=== PATIENT | male | born 1950 | race Caucasian/White ===

== ENCOUNTER 2021-02-09 01:16 | Emergency (ER) | payer OTHER ==
[~2021-02-09] VITALS: Ht 182.9 cm; Wt 81.8 kg
[2021-02-09 01:36] VITALS: BP 132/83
[2021-02-09] MEDS ORDERED: DEXA6TAB6 PO (03:52)
[2021-02-09] MEDS ORDERED: dexamethasone 4mg tablet PO ONE (03:55)
[2021-02-09] MEDS ORDERED: DEXAMETHASONE 6 MG TABLET PO ONE (04:20)
== END 2021-02-09 04:24 | disposition home or self-care (01) ==
LOC: ER 01:22
DX: U07.1 COVID-19 (principal); R09.81 Nasal congestion; R09.89 Other specified symptoms and signs involving the circulatory and respiratory systems; Z79.899 Other long term (current) drug therapy
CPT/HCPCS: 87635; 99283; C9803; J8540

== ENCOUNTER 2021-04-17 11:57 | Outpatient (CLI) | payer OTHER ==
[~2021-04-17] VITALS: Ht 182.9 cm; Wt 81.6 kg
[~2021-04-17 11:57] MED LIST: NO HOME MEDS; cefazolin/dext.iso 2gm/50ml IV ONE; famotidine 20mg tablet PO ONE; ringers solution, lacted 1,000 ML IV SCH
--- NOTE | 2021-04-17 13:17 | NUR ---
SURGERY CANCELED BY DR VEGA AND REQUESTS CARDIAC CLEARANCE D/T NEW ONSET A FIB ON EKG. DR GRAVES OFFICE NOTIFIED AND PT WILL NOTIFY HIS PMD Addendum: 04/17/21 at 1326 by Ilana Rios RN Amended: Links added.
== END 2021-04-17 13:15 | disposition home or self-care (01) ==
LOC: PRE-OP 11:57 → EDSTATUS 12:15 → PRE-OP 13:15
PROVIDERS: ATTEND Surgery
DX: K40.20 Bilateral inguinal hernia, without obstruction or gangrene, not specified as recurrent (principal); Z53.8 Procedure and treatment not carried out for other reasons; I48.91 Unspecified atrial fibrillation; F32.A Depression, unspecified; Z86.16 Personal history of COVID-19; Z79.899 Other long term (current) drug therapy
CPT/HCPCS: 93005; J0690; J7120

== ENCOUNTER 2021-09-18 08:04 | Day surgery (SDC) | payer OTHER ==
[2021-09-18] VITALS (13 sets, daily range): BP systolic 91–128; BP diastolic 57–93
[~2021-09-18] VITALS: Ht 182.9 cm; Wt 85.9 kg
[~2021-09-18 08:04] MED LIST changes: -cefazolin/dext.iso 2gm/50ml IV ONE; -famotidine 20mg tablet PO ONE; -ringers solution, lacted 1,000 ML IV SCH
[2021-09-18] MEDS ORDERED: diphenhydrAMINE 25mg capsule PO PRN (08:20)
[2021-09-18] MEDS ORDERED: nitroGLYCERIN 0.4mg SUBLingual tab SL PRN (08:20)
[2021-09-18] MEDS ORDERED: LORazepam 0.5 MG tablet PO PRN (08:20)
[2021-09-18] MEDS ORDERED: normal saline 1,000 ML IV SCH (08:20)
[2021-09-18] MEDS ORDERED: iohexol 350MG/ML 100ml bottle IV ONE ×2 (09:00→10:56)
[2021-09-18] MEDS ORDERED: CYAN50009 PO (09:48)
[2021-09-18] MEDS ORDERED: pneumococcal 23-VAL P-sac vacc 25 mcg/0.5ml vial IMVAC ONE (10:00)
[2021-09-18] MEDS ORDERED: fentaNYL/PF 50MCG/1 ML 2ML syringe ONE (10:56)
[2021-09-18] MEDS ORDERED: midazolam 1 mg/ML 2ml injection ONE (10:56)
[2021-09-18] MEDS ORDERED: LIDOcaine 1%/PF 5ML 10 MG/ML VIAL ONE (10:56)
--- NOTE | 2021-09-18 12:56 | NUR ---
Pt laying supine in bed, watching TV and eating crackers. Denies pain. States he is "doing good". Call light with in reach.
== END 2021-09-18 16:50 | disposition home or self-care (01) ==
LOC: SSTAY O 08:04
PROVIDERS: ATTEND Internal Medicine Cardiovascular Disease
DX: R94.39 Abnormal result of other cardiovascular function study (principal); I25.10 Atherosclerotic heart disease of native coronary artery without angina pectoris; I48.20 Chronic atrial fibrillation, unspecified; Z79.899 Other long term (current) drug therapy; Z98.890 Other specified postprocedural states; Z23 Encounter for immunization
CPT/HCPCS: 90732; 93005; 93458; C1760; C1769; J2250; J3010; J3490; J7030; Q0163; Q9967; 90471; 99152; A4620; A6258

== ENCOUNTER 2021-10-09 05:43 | Day surgery (SDC) | payer OTHER ==
[2021-10-04 14:59] LABS: BASOPHILS # (AUTO) 0.1 X10'3 (0-0.2); BASOPHILS % (AUTO) 1.1 % (0-1); EOSINOPHILS # (AUTO) 0.2 X10'3 (0-0.9); EOSINOPHILS % (AUTO) 3.4 % (0-6); LYMPHOCYTES # (AUTO) 1.9 X10'3 (1.1-4.8); LYMPHOCYTES % (AUTO) 27.3 % (21-51); MEAN CORPUSCULAR HEMOGLOBIN 31.1 PG (27.0-31.0); MEAN CORPUSCULAR HGB CONC 34.7 g/dL (33.0-36.5); MEAN CORPUSCULAR VOLUME 89.7 FL (78-98); MONOCYTES # (AUTO) 0.7 X10'3 (0-0.9); MONOCYTES % (AUTO) 9.9 % (2-12); NEUTROPHILS % (AUTO) 58.3 % (42-75); PRE OP HEMATOCRIT 43.9 % (42.0-52.0); PRE OP HEMOGLOBIN 15.2 g/dL (14.0-17.9); PRE OP PLATELET COUNT 267 X10'3 (140-440); RED BLOOD COUNT 4.89 X10'6 (4.70-6.10); RED CELL DISTRIBUTION WIDTH 13.3 % (11.5-14.5)
[2021-10-04 15:17] LABS: CLARITY,URINE CLEAR (Clear); COLOR,URINE YELLOW (Yellow); GLUCOSE, URINE NEGATIVE (Neg); KETONES,URINE TRACE mg/dl (Neg); LEUKOCYTE ESTERASE ,URINE NEGATIVE (Neg); NITRITES, URINE NEGATIVE (Neg); OCCULT BLOOD,URINE NEGATIVE (Neg); PH,URINE 5.5 (4.8-8.0); PROTEIN,URINE NEGATIVE (Neg); UROBILINOGEN,URINE 0.2 E.U/dL (0.2-1.0)
[2021-10-04 15:19] LABS: ALBUMIN 3.5 G/DL (3.4-5.0); ALKALINE PHOSPHATASE 130 IU/L (46-116); BLOOD UREA NITROGEN 15 MG/DL (7-18); BUN/CREATININE RATIO 16.5 (5.4-32.0); CALCIUM 8.7 MG/DL (8.5-10.1); CHLORIDE 107 MMOL/L (99-107); CREATININE 0.91 MG/DL (0.60-1.10); PRE OP ALT 34 U/L (30-65); PRE OP ANION GAP 6 (8-16); PRE OP AST 15 U/L (10-37); PRE OP GLUCOSE 114 MG/DL (70-104); PRE OP SODIUM 142 MMOL/L (135-145); TOTAL CARBON DIOXIDE 28.8 MMOL/L (24-32); TOTAL PROTEIN 7.1 G/DL (6.4-8.2); eGFR 82 ML/MIN
[2021-10-04 15:24] LABS: UA COLLECTION TYPE CLN CATCH MIDSTREAM
[~2021-10-09] VITALS: Ht 182.9 cm; Wt 85.0 kg
[2021-10-09] VITALS (25 sets, daily range): BP systolic 109–148; BP diastolic 62–92
[~2021-10-09 05:43] MED LIST changes: +ceFAZolin inj. 2,000 MG in dextrose 5%-water 100 ML IV ONE; +famotidine 20mg tablet PO ONE; +ringers solution, lacted 1,000 ML IV SCH
[2021-10-09] MEDS ORDERED: BUPIVAcaine/PF 2.5 mg/ml (0.25%) 30ml vial ONE (07:01)
[2021-10-09] MEDS ORDERED: fentaNYL/PF 50MCG/1 ML 2ML syringe ONE (07:05)
[2021-10-09] MEDS ORDERED: midazolam 1 mg/ML 2ml injection ONE (07:06)
[2021-10-09] MEDS ORDERED: morphine 2 MG/ML inj. syringe IV PRN (07:15)
[2021-10-09] MEDS ORDERED: hydrALAZINE 20mg/ml inj. IV PRN (07:15)
[2021-10-09] MEDS ORDERED: fentaNYL/PF 50MCG/1 ML 2ML syringe IV PRN ×2 (07:15)
[2021-10-09] MEDS ORDERED: ringers solution, lacted 1,000 ML IV SCH (07:15)
[2021-10-09] MEDS ORDERED: morphine 4 MG/ML inj SYRINge IV PRN (07:15)
[2021-10-09] MEDS ORDERED: ondansetron/PF 4mg/2ml inj IV PRN (07:15)
[2021-10-09] MEDS ORDERED: labetalol 20mg/4ml (5mg/ml) syringe IV PRN (07:15)
[2021-10-09] MEDS ORDERED: propofol 10mg/ml 20ml vial IV ONE (08:10)
[2021-10-09] MEDS ORDERED: sevoflurane 250ml liquid IH ONE (08:10)
[2021-10-09] MEDS ORDERED: rocuronium 10mg/ml inj IV ONE (08:11)
[2021-10-09] MEDS ORDERED: LIDOcaine 1%/PF 5ML 10 MG/ML VIAL ONE (08:11)
[2021-10-09] MEDS ORDERED: dexamethasone sod phosphate 4mg/ml inj. ONE (08:11)
[2021-10-09] MEDS ORDERED: ondansetron/PF 4mg/2ml inj ONE (08:11)
[2021-10-09] MEDS ORDERED: neostigmine methylsulfate 1 MG/ML 10ml vial ONE (08:44)
[2021-10-09] MEDS ORDERED: glycopyrrolate 0.2mg/ml inj ONE (08:44)
--- NOTE | 2021-10-09 10:26 | NUR ---
Received from OR via [facility], accompanied by Anesthesiologist DR. SALEEM and report given by Anesthesiolgist.PT IS GROGGY BUT WAKES EASILY TO VERBAL STIMULI AND IS ANSWERING QUESTIONS APPROPRIATELY. PT PLACED ON BEDSIDE MONITOR, VSS. PT IS IN AFIB AND RATE IS CONTROLLED IN 70'S. PT RECEIVING 10L O2 TO MASK ANS TOLERATING WELL, O2 SAT >97%, WILL TITRATE DOWN PT TOLERATES. PT BROOKE SPONTANEOUSLY WELL TO COMMAND. PT HAS 3 LAP SITES TO ABD, MID LATERAL RIGHT AND LATERAL LEFT WITH DERMABOND, ALL SITES ARE CDI, THERE ARE NO BANDAGES PRESENT. PT HAS 20G PIV TO RT HAND WITH LR INFUSING AT 100ML/HR ORDERED. PT ASKING FOR URINAL, ONE WAS PROVIDED. PT DENIES PAIN AT THIS TIME. WILL CONTINUE TO MONITOR.
[2021-10-09] MEDS ORDERED: traMADol 50MG tablet PO ONE (12:50)
--- NOTE | 2021-10-09 13:52 | NUR ---
CALL PLACED TO DR GRAVES IN REGARDS TO PT VOIDING. PT VOIDED 50-75ML WHEN FIRST OUT OF THE OR AND HAS NOT VOIDED SINCE. BLADDER SCAN PERFORMED, RESULTING IN 31ML IN BLADDER. IV FLUIDS HAVE BEEN INFUSING ORDERED AND PT HAS HAD GOOD PO INTAKE ON WATER. DR GRAVES WANTS PT TO VOID BEFORE BEING DISCHARGED. WILL CONTINUE TO MONITOR.
--- NOTE | 2021-10-09 14:20 | NUR ---
PT OFF MONITOR WALKING AROUND UNIT. PT IS STEADY ON FEET. WILL CONTINUE TO MONITOR.
--- NOTE | 2021-10-09 16:23 | NUR ---
PT VOIDED AND DR GRAVES NOTIFIED. STATED IT IS OKAY FOR PT TO GO HOME AND WILL SEND HOME A CATHETER KIT. PT IS AN RN. PT HAS BEEN EDUCATED THAT IF ANY PROBLEMS ARISE TO GO TO THE ED AND CALL DR GRAEVS'S OFFICE.
--- NOTE | 2021-10-09 16:33 | NUR ---
ALL DISCHARGE CRITERIA HAS BEEN MET. VSS, PAIN AT A TOLERABLE LEVEL, VOIDING AND ABLE TO SAFELY AMBULATE AND TRANSFER SELF. IV TAKEN OUT WITHOUT ANY COMPLICATIONS. ALL DISCHARGE INSTRUCTIONS COVERED WITH PATIENT AND ALL QUESTIONS ANSWERED. PATIENT TAKEN OUT VIA WHEELCHAIR TO PERSONAL VEHICLE WHERE DROVE PATIENT HOME.
== END 2021-10-09 16:32 | disposition home or self-care (01) ==
LOC: PAS 05:43
PROVIDERS: ATTEND Surgery
DX: K40.20 Bilateral inguinal hernia, without obstruction or gangrene, not specified as recurrent (principal); I48.91 Unspecified atrial fibrillation; Z79.899 Other long term (current) drug therapy; Z98.890 Other specified postprocedural states; Z82.49 Family history of ischemic heart disease and other diseases of the circulatory system
CPT/HCPCS: 36415; 49650; 80053; 81003; 82948; 85025; 87811; C1758; C1781; J0690; J1100; J2250; J2405; J2704; J2710; J3010; J3490; J7030; J7060; J7120; Z7506; Z7508; Z7512; A4215; A4618